=== PATIENT | male | born 1960 | race African-American/Black ===

== ENCOUNTER 2022-05-14 14:25 | Inpatient (IN) | payer OTHER ==
[2022-05-14 16:47] LABS: BASO % 0.9 % (0-2.0); EOS % 2.8 % (0-4.5); HEMATOCRIT 38.2 % (35.4-49); HEMOGLOBIN 12.8 GM/dL (11.7-16.9); LYMPH % 24.9 % (8-40); MCH 29.6 pg (25.7-33.7); MCHC 33.4 g/dl (32.0-35.9); MEAN CELL VOLUME 88.6 fl (80-96); MEAN PLT VOLUME 8.2 fl (7.5-11.1); MONO % 10.4 % (3.8-10.2); PLATELET COUNT 279 10^3/uL (134-434); RBC 4.31 M/mm3 (4.00-5.60); RDW 14.2 % (11.9-15.9); WHITE BLOOD COUNT 5.7 K/mm3 (4.0-10.0)
[2022-05-14 16:52] LABS: INR 1.1 (0.83-1.09); PROTHROMBIN TIME (PATIENT) 12.7 SEC (9.7-13.0)
[2022-05-14 17:01] LABS: CHLORIDE 102 mmol/L (98-107); SODIUM 139 mmol/L (136-145)
[2022-05-14 17:03] LABS: CALCIUM 9.3 mg/dL (8.5-10.1)
[2022-05-14 17:04] LABS: ALBUMIN 3.8 g/dl (3.4-5.0); ANION GAP 3 MMOL/L (8-16); BLOOD UREA NITROGEN 15.9 mg/dL (7-18); CO2 33 mmol/L (21-32); GLUCOSE,RANDOM 128 mg/dL (74-106); MAGNESIUM 2.2 mg/dL (1.8-2.4)
[2022-05-14 17:07] LABS: SGOT/AST 25 U/L (15-37); SGPT/ALT 32 U/L (13-61)
[2022-05-14 17:08] LABS: BILIRUBIN,TOTAL 0.3 mg/dL (0.2-1)
[2022-05-14 17:09] LABS: TOT PROT 7.4 g/dl (6.4-8.2)
[2022-05-14 17:10] LABS: ALK PHOS 80 U/L (45-117)
[2022-05-14] MEDS ORDERED: ASPIRIN 81 MG CHEWABLE TABLETS PO ONE (17:56)
[2022-05-14] MEDS ORDERED: CLOPIDOGREL BISULFATE 75 MG TABLET (FP) PO ONE (18:12)
[2022-05-14] MEDS ORDERED: ASPIRIN 81 MG CHEWABLE TABLETS ONE (18:15)
[2022-05-14] MEDS ORDERED: CLOPIDOGREL BISULFATE 75 MG TABLET (FP) ONE (18:15)
[2022-05-14] MEDS ORDERED: HEPARIN NA (PORCINE) 5,000 UNITS/ML 1ML VIAL IVPUSH PRN (18:30)
[2022-05-14] MEDS ORDERED: HEPARIN INFUSION - 25,000 UNITS/500 ML INFUS.BAG IVPB ONE (19:09)
[2022-05-14] MEDS: HEPARIN INFUSION - 25,000 UNITS/500 ML INFUS.BAG IVPB SCH (19:44)
[2022-05-14 20:04] LABS: INR 1.09 (0.83-1.09); PROTHROMBIN TIME (PATIENT) 12.6 SEC (9.7-13.0)
[2022-05-14 20:07] LABS: ACTIVATED PTT 30.4 SECONDS (25.2-36.5)
[2022-05-14 20:22] LABS: CHOLESTEROL 183 mg/dL (50-200)
[2022-05-14 20:23] LABS: TRIGLYCERIDES 286 mg/dL (0-150)
[2022-05-14 20:24] LABS: LDL CHOLESTEROL (ONLY SJRH) 105 mg/dL (5-100)
[2022-05-14 20:25] LABS: HDL CHOLESTEROL 49 mg/dL (40-60)
[2022-05-15 02:05] LABS: URINE APPEARANCE CLEAR; URINE BILIRUBIN NEGATIVE (NEGATIVE); URINE COLOR YELLOW; URINE GLUCOSE (UA) NEGATIVE (NEGATIVE); URINE KETONE NEGATIVE (NEGATIVE); URINE LEUK ESTERASE NEGATIVE (NEGATIVE); URINE NITRITE NEGATIVE (NEGATIVE); URINE PROTEIN TRACE (NEGATIVE); URINE UROBILINOGEN 0.2 mg/dL (0.2-1.0)
[2022-05-15 04:21] VITALS: BMI 35.0
[2022-05-15 07:49] LABS: CALCIUM 8.9 mg/dL (8.5-10.1)
[2022-05-15 07:50] LABS: ALBUMIN 3.5 g/dl (3.4-5.0); BLOOD UREA NITROGEN 9.4 mg/dL (7-18); MAGNESIUM 2.2 mg/dL (1.8-2.4)
[2022-05-15 07:53] LABS: CREATININE 0.9 mg/dL (0.55-1.3)
[2022-05-15] MEDS: CARVEDILOL 6.25 MG TABLET (FP) PO SCH ×3 (07:53→21:05)
[2022-05-15 07:54] LABS: TOT PROT 7.2 g/dl (6.4-8.2)
[2022-05-15 07:55] LABS: BILIRUBIN,TOTAL 0.4 mg/dL (0.2-1)
[2022-05-15] MEDS: FUROSEMIDE 40 MG/4 ML INJECTABLE VIAL IVPUSH SCH ×2 (08:37→14:47)
[2022-05-15] MEDS: amLODIPine BESYLATE 10 MG TABLET (FP) PO SCH (10:12)
[2022-05-15] MEDS: LISINOPRIL 20 MG TABLET PO SCH (10:12)
[2022-05-15] MEDS: HEPARIN NA (PORCINE) 5,000 UNITS/ML 1ML VIAL IVPUSH PRN (10:51)
[2022-05-15] MEDS: ACETAMINOPHEN 325 MG TABLET (FP) PO PRN (12:07)
[2022-05-15] MEDS: ATORVASTATIN CA 80 MG TABLET (FP) PO SCH (21:38)
[2022-05-15] MEDS ORDERED: ATORVASTATIN CA 80 MG TABLET (FP) PO SCH (22:00)
[2022-05-16] MEDS: ACETAMINOPHEN 325 MG TABLET (FP) PO PRN (00:07)
[2022-05-16] MEDS: HEPARIN INFUSION - 25,000 UNITS/500 ML INFUS.BAG IVPB SCH ×3 (04:24→19:15)
[2022-05-16 07:37] LABS: HEMATOCRIT 42.5 % (35.4-49); HEMOGLOBIN 14.1 GM/dL (11.7-16.9); MCH 29.2 pg (25.7-33.7); MCHC 33.1 g/dl (32.0-35.9); MEAN CELL VOLUME 88.2 fl (80-96); MEAN PLT VOLUME 8.7 fl (7.5-11.1); PLATELET COUNT 279 10^3/uL (134-434); RBC 4.82 M/mm3 (4.00-5.60); WHITE BLOOD COUNT 5.7 K/mm3 (4.0-10.0)
[2022-05-16] MEDS: CARVEDILOL 6.25 MG TABLET (FP) PO SCH ×2 (09:21→21:24)
[2022-05-16] MEDS: TORSEMIDE 20 MG TABLET (FP) PO SCH (09:21)
[2022-05-16] MEDS: amLODIPine BESYLATE 10 MG TABLET (FP) PO SCH (09:21)
[2022-05-16] MEDS: LISINOPRIL 20 MG TABLET PO SCH (09:21)
[2022-05-16] MEDS: ASPIRIN 81 MG CHEWABLE TABLETS PO SCH (09:21)
[2022-05-16] MEDS: HEPARIN NA (PORCINE) 5,000 UNITS/ML 1ML VIAL IVPUSH PRN (16:10)
[2022-05-16] MEDS: ATORVASTATIN CA 80 MG TABLET (FP) PO SCH (21:24)
[2022-05-17 07:27] LABS: HEMOGLOBIN 13.9 GM/dL (11.7-16.9); MEAN CELL VOLUME 87.7 fl (80-96); PLATELET COUNT 273 10^3/uL (134-434); RBC 4.79 M/mm3 (4.00-5.60); RDW 13.9 % (11.9-15.9); WHITE BLOOD COUNT 5.2 K/mm3 (4.0-10.0)
[2022-05-17] MEDS: CARVEDILOL 6.25 MG TABLET (FP) PO SCH ×2 (10:14→21:59)
[2022-05-17] MEDS: LISINOPRIL 20 MG TABLET PO SCH (10:14)
[2022-05-17] MEDS: ASPIRIN 81 MG CHEWABLE TABLETS PO SCH (10:14)
[2022-05-17] MEDS: amLODIPine BESYLATE 10 MG TABLET (FP) PO SCH (10:14)
[2022-05-17] MEDS: TORSEMIDE 20 MG TABLET (FP) PO SCH (10:14)
[2022-05-17] MEDS: HEPARIN INFUSION - 25,000 UNITS/500 ML INFUS.BAG IVPB SCH (19:12)
[2022-05-17] MEDS: ATORVASTATIN CA 80 MG TABLET (FP) PO SCH (21:59)
[2022-05-18 07:50] LABS: HEMATOCRIT 41.4 % (35.4-49); HEMOGLOBIN 13.7 GM/dL (11.7-16.9); MCH 29.2 pg (25.7-33.7); MCHC 33.1 g/dl (32.0-35.9); MEAN CELL VOLUME 88.3 fl (80-96); MEAN PLT VOLUME 9.1 fl (7.5-11.1); PLATELET COUNT 266 10^3/uL (134-434); RBC 4.69 M/mm3 (4.00-5.60); RDW 13.9 % (11.9-15.9); WHITE BLOOD COUNT 5.2 K/mm3 (4.0-10.0)
[2022-05-18] MEDS: LISINOPRIL 20 MG TABLET PO SCH (09:31)
[2022-05-18] MEDS: ASPIRIN 81 MG CHEWABLE TABLETS PO SCH (09:31)
[2022-05-18] MEDS: CARVEDILOL 6.25 MG TABLET (FP) PO SCH ×2 (09:31→22:32)
[2022-05-18] MEDS: TORSEMIDE 20 MG TABLET (FP) PO SCH (09:31)
[2022-05-18] MEDS: amLODIPine BESYLATE 10 MG TABLET (FP) PO SCH (09:31)
[2022-05-18] MEDS: HEPARIN INFUSION - 25,000 UNITS/500 ML INFUS.BAG IVPB SCH (15:44)
[2022-05-18] MEDS: ATORVASTATIN CA 80 MG TABLET (FP) PO SCH (22:32)
[2022-05-19 07:53] LABS: BASO % 1.2 % (0-2.0); EOS % 3.7 % (0-4.5); HEMOGLOBIN 13.8 GM/dL (11.7-16.9); LYMPH % 48.9 % (8-40); MCH 29.3 pg (25.7-33.7); MCHC 33.7 g/dl (32.0-35.9); MEAN CELL VOLUME 86.8 fl (80-96); MEAN PLT VOLUME 9.1 fl (7.5-11.1); MONO % 12.7 % (3.8-10.2); NEUT % 33.5 % (42.8-82.8); PLATELET COUNT 260 10^3/uL (134-434); RBC 4.73 M/mm3 (4.00-5.60); WHITE BLOOD COUNT 4.9 K/mm3 (4.0-10.0)
[2022-05-19 08:27] LABS: ALBUMIN 3.3 g/dl (3.4-5.0)
[2022-05-19 08:28] LABS: BLOOD UREA NITROGEN 22.3 mg/dL (7-18); CALCIUM 9.3 mg/dL (8.5-10.1)
[2022-05-19 08:31] LABS: CREATININE 1.1 mg/dL (0.55-1.3)
[2022-05-19 08:32] LABS: BILIRUBIN,TOTAL 0.6 mg/dL (0.2-1); TOT PROT 6.7 g/dl (6.4-8.2)
[2022-05-19] MEDS: HEPARIN INFUSION - 25,000 UNITS/500 ML INFUS.BAG IVPB SCH (09:12)
[2022-05-19] MEDS: LISINOPRIL 20 MG TABLET PO SCH (09:13)
[2022-05-19] MEDS: ASPIRIN 81 MG CHEWABLE TABLETS PO SCH (09:13)
[2022-05-19] MEDS: amLODIPine BESYLATE 10 MG TABLET (FP) PO SCH (09:13)
[2022-05-19] MEDS: CARVEDILOL 6.25 MG TABLET (FP) PO SCH ×2 (09:13→21:09)
[2022-05-19] MEDS: TORSEMIDE 20 MG TABLET (FP) PO SCH (09:13)
[2022-05-19 14:19] LABS: INR 1.08 (0.83-1.09); PROTHROMBIN TIME (PATIENT) 12.5 SEC (9.7-13.0)
[2022-05-19 14:22] LABS: ACTIVATED PTT 34.2 SECONDS (25.2-36.5)
[2022-05-19] MEDS: APIXABAN 2.5 MG TABLET PO SCH ×2 (15:25→21:09)
[2022-05-19] MEDS: ATORVASTATIN CA 80 MG TABLET (FP) PO SCH (21:09)
[2022-05-20 08:40] LABS: BASO % 0.7 % (0-2.0); EOS % 3.4 % (0-4.5); HEMATOCRIT 41.5 % (35.4-49); HEMOGLOBIN 14.1 GM/dL (11.7-16.9); LYMPH % 38.5 % (8-40); MCH 29.9 pg (25.7-33.7); MCHC 34.1 g/dl (32.0-35.9); MEAN CELL VOLUME 87.7 fl (80-96); MEAN PLT VOLUME 8.5 fl (7.5-11.1); MONO % 11.3 % (3.8-10.2); NEUT % 46.1 % (42.8-82.8); PLATELET COUNT 258 10^3/uL (134-434); RBC 4.73 M/mm3 (4.00-5.60); RDW 14.1 % (11.9-15.9); WHITE BLOOD COUNT 5.2 K/mm3 (4.0-10.0)
[2022-05-20 09:11] LABS: CALCIUM 9.4 mg/dL (8.5-10.1)
[2022-05-20 09:12] LABS: ALBUMIN 3.5 g/dl (3.4-5.0); BLOOD UREA NITROGEN 19.7 mg/dL (7-18); MAGNESIUM 2.2 mg/dL (1.8-2.4)
[2022-05-20 09:15] LABS: CREATININE 1.1 mg/dL (0.55-1.3); PHOSPHOROUS 3.8 mg/dL (2.5-4.9)
[2022-05-20 09:16] LABS: BILIRUBIN,TOTAL 0.7 mg/dL (0.2-1)
[2022-05-20] MEDS: TORSEMIDE 20 MG TABLET (FP) PO SCH (09:36)
[2022-05-20] MEDS: CARVEDILOL 6.25 MG TABLET (FP) PO SCH ×2 (09:36→22:08)
[2022-05-20] MEDS: LISINOPRIL 20 MG TABLET PO SCH (09:36)
[2022-05-20] MEDS: amLODIPine BESYLATE 10 MG TABLET (FP) PO SCH (09:36)
[2022-05-20] MEDS: APIXABAN 2.5 MG TABLET PO SCH ×2 (09:36→22:08)
[2022-05-20] MEDS: ATORVASTATIN CA 80 MG TABLET (FP) PO SCH (22:08)
[2022-05-21 04:36] VITALS: RESP 18
[2022-05-21 08:49] LABS: HEMATOCRIT 39.2 % (35.4-49); HEMOGLOBIN 13.2 GM/dL (11.7-16.9); MCHC 33.8 g/dl (32.0-35.9); MEAN CELL VOLUME 88.8 fl (80-96); MEAN PLT VOLUME 8.8 fl (7.5-11.1); PLATELET COUNT 246 10^3/uL (134-434); RBC 4.41 M/mm3 (4.00-5.60)
[2022-05-21 09:06] VITALS: BP 120/70; PULSE 79; TEMP 98.8
[2022-05-21 09:12] LABS: BLOOD UREA NITROGEN 17.1 mg/dL (7-18)
[2022-05-21] MEDS: CARVEDILOL 6.25 MG TABLET (FP) PO SCH (09:13)
[2022-05-21] MEDS: LISINOPRIL 20 MG TABLET PO SCH (09:13)
[2022-05-21] MEDS: TORSEMIDE 20 MG TABLET (FP) PO SCH (09:14)
[2022-05-21] MEDS: amLODIPine BESYLATE 10 MG TABLET (FP) PO SCH (09:14)
[2022-05-21] MEDS: APIXABAN 2.5 MG TABLET PO SCH (09:14)
[2022-05-21 09:15] LABS: CREATININE 1.1 mg/dL (0.55-1.3)
[2022-05-21 09:22] LABS: CALCIUM 9.2 mg/dL (8.5-10.1)
== END 2022-05-21 13:48 | disposition home or self-care (01) | DRG 45 ==
LOC: JER 14:25 → JERBED 18:20 → J4W 05-15 03:40
PROVIDERS: ADMIT Internal Medicine; ATTEND Internal Medicine
DX: I63.9 Cerebral infarction, unspecified (principal); I50.33 Acute on chronic diastolic (congestive) heart failure; I21.4 Non-ST elevation (NSTEMI) myocardial infarction; I48.92 Unspecified atrial flutter; H53.8 Other visual disturbances; H53.2 Diplopia; E78.5 Hyperlipidemia, unspecified; I11.0 Hypertensive heart disease with heart failure; I47.20 Ventricular tachycardia, unspecified; I48.91 Unspecified atrial fibrillation; R29.700 NIHSS score 0; H49.01 Third [oculomotor] nerve palsy, right eye; R77.8 Other specified abnormalities of plasma proteins
CPT/HCPCS: 0241U-QW; 36415; 70450-TC; 70480-TC; 70544-TC; 70547-TC; 70551-TC; 71046-TC-FY; 71250-TC; 80048; 80053; 80061; 81003; 82272; 82550; 82553; 83036; 83519; 83735; 83880; 84100; 84484; 85025; 85027; 85610; 85730; 86850; 86900; 86901; 93005; 93010; 93306-TC; 93308; 97116-GP; 97162-GP; 99285-25; J1644

== ENCOUNTER 2022-05-28 20:41 | Emergency (ER) | payer OTHER ==
[2022-05-28 20:44] VITALS: BP 161/89; PULSE 79; RESP 18; TEMP 97.7; BMI 32.5
[2022-05-28 22:57] LABS: BASO % 0.9 % (0-2.0); EOS % 3.5 % (0-4.5); HEMATOCRIT 34.8 % (35.4-49); HEMOGLOBIN 11.5 GM/dL (11.7-16.9); MCH 29.1 pg (25.7-33.7); MCHC 33.1 g/dl (32.0-35.9); MEAN CELL VOLUME 88.1 fl (80-96); MEAN PLT VOLUME 8.5 fl (7.5-11.1); MONO % 7.9 % (3.8-10.2); NEUT % 56.7 % (42.8-82.8); PLATELET COUNT 222 10^3/uL (134-434); RBC 3.95 M/mm3 (4.00-5.60); RDW 13.7 % (11.9-15.9); WHITE BLOOD COUNT 6.9 K/mm3 (4.0-10.0)
[2022-05-28 23:21] LABS: ALBUMIN 3.2 g/dl (3.4-5.0); CALCIUM 8.9 mg/dL (8.5-10.1)
[2022-05-28] MEDS ORDERED: FUROSEMIDE 40 MG/4 ML INJECTABLE VIAL IVPUSH ONE (23:21)
[2022-05-28 23:22] LABS: BLOOD UREA NITROGEN 12.6 mg/dL (7-18)
[2022-05-28 23:24] LABS: CREATININE 1.1 mg/dL (0.55-1.3)
[2022-05-28 23:26] LABS: BILIRUBIN,TOTAL 0.4 mg/dL (0.2-1); TOT PROT 6.3 g/dl (6.4-8.2)
[2022-05-28] MEDS ORDERED: FUROSEMIDE 40 MG/4 ML INJECTABLE VIAL ONE (23:44)
[2022-05-29] MEDS ORDERED: FUROSEMIDE 40 MG/4 ML INJECTABLE VIAL IVPUSH ONE (00:39)
[2022-05-29] MEDS ORDERED: FUROSEMIDE 40 MG/4 ML INJECTABLE VIAL ONE (00:57)
== END 2022-05-29 01:48 | disposition home or self-care (01) ==
LOC: JER 20:41
PROC: 3E033GC Introduction of Other Therapeutic Substance into Peripheral Vein, Percutaneous Approach (ICD-10-PCS; principal; 2022-05-28)
PROC: 3E033GC Introduction of Other Therapeutic Substance into Peripheral Vein, Percutaneous Approach (ICD-10-PCS; 2022-05-28)
DX: R06.02 Shortness of breath (principal); R06.00 Dyspnea, unspecified
CPT/HCPCS: 0241U-QW; 36415; 71045-TC-FY; 80053; 84484; 85025; 93005; 93010; 99285-25